=== PATIENT | male | born 1950 | race Caucasian/White ===

== ENCOUNTER 2016-10-29 08:00 | Emergency (ER) | payer MEDICARE, OTHER ==
[2016-10-29 08:47] VITALS: BP 136/58
--- NOTE | 2016-10-29 09:00 | UC ---
Throat Pain/Nasal Yoshi HPI - HPI Summary HPI Summary: right sinus pain. mucinex not helping. congestion. no fever. - History of Current Complaint Chief Complaint: UCRespiratory Stated Complaint: SINUS Time Seen by Provider: 10/29/16 08:56 Hx Obtained From: Patient Onset/Duration: Gradual Onset, Lasting Days Severity: Moderate Cough: None Associated Signs & Symptoms: Positive: Sinus Discomfort, Nasal Discharge. Negative: Fever - Allergies/Home Medications Allergies/Adverse Reactions: Allergies Allergy/AdvReac Type Severity Reaction Status Date / Time Amoxicillin [From Augmentin] Allergy Unknown Hives Verified 10/29/16 08:16 Clarithromycin [From Biaxin] Allergy Unknown Palpitation Verified 10/29/16 08:16 s Clavulanic Acid Allergy Unknown Unknown Verified 02/10/15 08:52 [From Augmentin] Reaction Details Penicillins Allergy Unknown Anaphylatic Verified 10/29/16 08:16 Shock Home Medications: Home Medications Empagliflozin-Metformin HCl [Synjardy 12.5-1000 mg] 1 tab PO BID 10/29/16 [ History Confirmed 10/29/16] PMH/Surg Hx/FS Hx/Imm Hx Previously Healthy: Yes - Surgical History Surgical History: Yes Surgery Procedure, Year, and Place: tonsilectomy - Family History Known Family History: Positive: Other - no sinus related history. - Social History Alcohol Use: None Substance Use Type: None, Prescribed Smoking Status (MU): Former Smoker Type: Cigarettes When Did the Patient Quit Smoking/Using Tobacco: 1978 - Immunization History Most Recent Influenza Vaccination: never Most Recent Tetanus Shot: 2013 Most Recent Pneumonia Vaccination: never Review of Systems All Other Systems Reviewed And Are Negative: Yes Physical Exam Triage Information Reviewed: Yes Appearance: Well-Appearing, No Pain Distress, Well-Nourished Vital Signs: Initial Vital Signs Temp 98.3 F 10/29/16 08:10 Pulse 71 10/29/16 08:10 Resp 18 10/29/16 08:10 BP 136/58 10/29/16 08:10 Pulse Ox 97 10/29/16 08:10 Vital Signs Reviewed: Yes Eye Exam: Normal ENT Exam: Other - right maxillary tenderness. ENT: Positive: Nasal congestion, TMs normal. Negative: Nasal drainage, Tonsillar swelling, Tonsillar exudate, Trismus, Muffled/hoarse voice Neck exam: Normal Neck: Positive: Supple Respiratory Exam: Normal Cardiovascular Exam: Normal Abdominal Exam: Normal Musculoskeletal Exam: Normal Musculoskeletal: Positive: Strength Intact Neurological Exam: Normal Neurological: Positive: Alert Psychological Exam: Normal Skin Exam: Normal Throat Pain/Nasal Course/Dx - Differential Dx/Diagnosis Provider Diagnoses: sinusitis Discharge - Discharge Plan Condition: Good Disposition: HOME Prescriptions: DOXYcycline CAP(*) [DOXYcycline 100MG CAP(*)] 100 mg PO BID #20 cap Patient Education Materials: Sinusitis (ED) Referrals: Cecil Villar NP [Primary Care Provider] -
== END 2016-10-29 09:14 | disposition home or self-care (01) ==
LOC: UCCORT 08:00
DX: J32.9 Chronic sinusitis, unspecified (principal); Z88.1 Allergy status to other antibiotic agents; Z88.0 Allergy status to penicillin; Z87.891 Personal history of nicotine dependence
CPT/HCPCS: 99212; G0463

== ENCOUNTER 2017-05-08 07:07 | Emergency (ER) | payer MEDICARE, OTHER ==
[2017-05-08 07:19] VITALS: BP 152/65
--- NOTE | 2017-05-08 07:39 | UC ---
General HPI - HPI Summary HPI Summary: 66 yo gentleman c/o approx 2 weeks sinus pressure, congestion, post nasal drip. Mild cough with post nasal drip. No rash. No sob / cp. + frontal sinus h/ a. No GI issues reported. No rash. - History of Current Complaint Chief Complaint: UCRespiratory Stated Complaint: SINUSES Time Seen by Provider: 05/08/17 07:21 Hx Obtained From: Patient - Allergy/Home Medications Allergies/Adverse Reactions: Allergies Allergy/AdvReac Type Severity Reaction Status Date / Time Amoxicillin [From Augmentin] Allergy Unknown Hives Verified 05/08/17 07:14 Clarithromycin [From Biaxin] Allergy Unknown Palpitation Verified 05/08/17 07:14 s Clavulanic Acid Allergy Unknown Unknown Verified 05/08/17 07:14 [From Augmentin] Reaction Details Penicillins Allergy Unknown Anaphylatic Verified 05/08/17 07:14 Shock PMH/Surg Hx/FS Hx/Imm Hx Previously Healthy: No - dm, hx shingles - Surgical History Surgical History: Yes Surgery Procedure, Year, and Place: tonsilectomy - Family History Known Family History: Positive: Other - no sinus related history. - Social History Alcohol Use: None Substance Use Type: None Smoking Status (MU): Former Smoker Type: Cigarettes When Did the Patient Quit Smoking/Using Tobacco: 1978 - Immunization History Most Recent Influenza Vaccination: 2016 Most Recent Tetanus Shot: 2013 Most Recent Pneumonia Vaccination: never Review of Systems Constitutional: Negative Skin: Negative Eyes: Negative ENT: Nasal Discharge, Sinus Congestion, Sinus Pain/Tenderness Respiratory: Cough Cardiovascular: Negative Gastrointestinal: Negative Genitourinary: Negative Motor: Negative Neurovascular: Negative Musculoskeletal: Negative Neurological: Negative Psychological: Negative Is Patient Immunocompromised?: No All Other Systems Reviewed And Are Negative: Yes Physical Exam Triage Information Reviewed: Yes Appearance: Well-Nourished Vital Signs: Initial Vital Signs Temp 98.6 F 05/08/17 07:15 Pulse 72 05/08/17 07:15 Resp 16 05/08/17 07:15 BP 152/65 05/08/17 07:15 Pulse Ox 98 05/08/17 07:15 Vital Signs Reviewed: Yes Eye Exam: Normal ENT: Positive: Pharyngeal erythema - mild post pharynx redness, no [place] sores appreciated, TM dull, Other - + dark circles under eyes, puffy eyelids Neck exam: Normal Neck: Positive: Supple, Nontender Respiratory Exam: Normal Respiratory: Positive: Chest non-tender, Lungs clear, Normal breath sounds, No respiratory distress Cardiovascular Exam: Normal Cardiovascular: Positive: RRR, No Murmur, Pulses Normal, Brisk Capillary Refill Abdominal Exam: Normal Abdomen Description: Positive: Nontender Musculoskeletal Exam: Normal Musculoskeletal: Positive: Strength Intact, ROM Intact Neurological Exam: Normal Psychological Exam: Normal Skin Exam: Normal - no rash visible or reported Course/Dx - Course Course Of Treatment: No new problems. Reviewed medications / allergies. Questions as posed answered to the best of my ability. - Differential Dx - Multi-Symptom Provider Diagnoses: Acute sinusitis Discharge - Discharge Plan Condition: Stable Disposition: HOME Prescriptions: DOXYcycline CAP(*) [DOXYcycline 100MG CAP(*)] 100 mg PO BID #28 cap Patient Education Materials: Sinusitis (ED) Referrals: Cecil Villar NP [Primary Care Provider] - Additional Instructions: Follow up Francheska Villar NP - call to schedule appointment for blood pressure check, within 4 weeks. Avoid "Decongestant" if possible (will increase blood pressure). Eat yogurt and / or take probiotics while taking antibiotics. Seek medical attention for worse or new problems.
== END 2017-05-08 07:40 | disposition home or self-care (01) ==
LOC: UCCORT 07:07
DX: J01.90 Acute sinusitis, unspecified (principal); Z87.891 Personal history of nicotine dependence
CPT/HCPCS: 99212; G0463